=== PATIENT | female | born 1990 | race Caucasian/White ===

== ENCOUNTER 2019-03-11 03:17 | Emergency (ER) | payer MEDICAID ==
[~2019-03-11] VITALS: Ht 165.1 cm; Wt 75.5 kg
[2019-03-11] MEDS ORDERED: PYRI50 PO (03:28)
[2019-03-11] MEDS ORDERED: AMOX500C2 PO (03:28)
[2019-03-11] MEDS ORDERED: PREN-155 PO (03:28)
[2019-03-11] MEDS ORDERED: DOXY25TA29 PO (03:28)
[2019-03-11] MEDS ORDERED: ACET-2123 PO (03:28)
[2019-03-11] MEDS ORDERED: BUPIVACAINE 0.25%/EPI 1:200,000/PF 10 ML VIAL INJ ONE (04:15)
[2019-03-11 05:18] VITALS: BP 124/79
== END 2019-03-11 05:22 | disposition home or self-care (01) ==
LOC: EMS 03:23
DX: O99.611 Diseases of the digestive system complicating pregnancy, first trimester (principal); K08.89 Other specified disorders of teeth and supporting structures; Z3A.08 8 weeks gestation of pregnancy; Z79.899 Other long term (current) drug therapy
CPT/HCPCS: 64400; 99284; J3490

== ENCOUNTER 2021-05-22 20:10 | Emergency (ER) | payer MEDICAID ==
[~2021-05-22] VITALS: Ht 167.6 cm; Wt 68.2 kg
[~2021-05-22 20:10] MED LIST: ACET-2123 PO; AMOX500C2 PO; DOXY25TA29 PO; PREN-155 PO; PYRI-6 PO
[2021-05-22 23:29] LABS: APPEARANCE,URINE CLOUDY (CLEAR); BILIRUBIN,URINE NEGATIVE (NEGATIVE); GLUCOSE, URINE (UA) NEGATIVE (NEGATIVE); KETONES,URINE 40 mg/dL (NEGATIVE); LEUKOCYTE ESTERASE ,URINE LARGE (NEGATIVE); NITRATE,URINE NEGATIVE (NEGATIVE); OCCULT BLOOD,URINE LARGE (NEGATIVE); PH,URINE 5.5 (5.0-8.0); PROTEIN,URINE TRACE (NEGATIVE); UROBILINOGEN,URINE 0.2 mg/dL (<=1.0)
[2021-05-22 23:43] LABS: BACTERIA,URINE Many /HPF (None Seen); RBC,URINE 51-100 /HPF (0-2); WBC,URINE Full Field /HPF (0-5)
[2021-05-23] VITALS: BP 124/88
[2021-05-23] MEDS ORDERED: IBUPROFEN 600 MG TABLET PO ONE (00:15)
[2021-05-23] MEDS ORDERED: PHENAZOPYRIDINE HCL 100 MG TABLET PO ONE (00:15)
[2021-05-23] MEDS ORDERED: CEPHALEXIN MONOHYDRATE 500 MG CAPSULE PO ONE ×2 (00:15)
== END 2021-05-23 00:15 | disposition home or self-care (01) ==
LOC: EMS 20:12
DX: N12 Tubulo-interstitial nephritis, not specified as acute or chronic (principal)
CPT/HCPCS: 81001; 87077; 87086; 87186; 99284; Z7502; Z7610